=== PATIENT | female | born 2000 | race Caucasian/White ===

== ENCOUNTER 2019-02-19 23:05 | Emergency (ER) | payer OTHER | END 2019-02-19 23:25 | disposition left against medical advice (07) | LOC: ED 23:19 | DX: J06.9 Acute upper respiratory infection, unspecified (principal) | CPT/HCPCS: 99281 ==

== ENCOUNTER 2019-08-26 10:13 | Outpatient (CLI) | payer BC | END 2019-08-26 23:59 | disposition home or self-care (01) | LOC: CFH 10:13 | PROVIDERS: ATTEND Emergency Medicine | DX: R30.0 Dysuria (principal) | CPT/HCPCS: 76770 ==